=== PATIENT | female | born 1935 | race Caucasian/White ===

== ENCOUNTER 2020-01-03 10:47 | Inpatient (IN) ==
[2020-01-03] MEDS ORDERED: SOLU-MEDROL IV ONE (11:34)
[2020-01-03] MEDS ORDERED: NS 1,000 ML IV ONE (11:34)
[2020-01-03] MEDS ORDERED: DUONEB (A & A) INH ONE (11:34)
[2020-01-03] MEDS ORDERED: LEVAQUIN 750 MG/D5W 750 MG/150 ML IVPB IV ONE (11:34)
[2020-01-03] MEDS: TYLENOL PO ONE ×2 (11:34→13:02)
[2020-01-03] MEDS ORDERED: ROCEPHIN 1 GM in NS 50 ML IV ONE (11:34)
[2020-01-03 11:45] LABS: BASO# 0.03 X1000 (0.0-0.2); BASO% 0.2 % (0.0-0.8); EOS# 0.04 X1000 (0.0-0.7); EOS% 0.2 % (0.0-10.0); HEMATOCRIT 42.1 % (37.0-47.0); HEMOGLOBIN 13.4 g/dL (12.0-16.0); IMM GRAN# 0.06 X1000 (0.0-0.04); IMM GRAN% 0.3 % (0.0-0.5); LYMPH# 2.59 X1000 (1.2-3.4); LYMPH% 14.8 % (20.5-51.1); MCH 31.6 PG (27-31); MCHC 31.8 g/dL (33-37); MCV 99.3 FL (81-99); MONO# 1.96 X1000 (0.11-0.59); MONO% 11.2 % (1.7-9.3); MPV 11.6 FL (7.4-10.4); NEUT# 12.85 X1000 (1.4-6.5); NEUT% 73.3 % (42.2-75.2); PLT 134 X1000 (130-400); RBC 4.24 XMIL (4.2-5.4); RDW 14.1 % (11.5-14.5); WBC 17.53 X1000 (4.8-10.8)
[2020-01-03 11:51] LABS: BANDS 3 % (0-1); LYMPHS 13 % (21-51); MONO 5 % (1-9); SEGS 79 % (42-75)
--- NOTE | 2020-01-03 12:22 | Diag Imaging Result Doc PS360 ---
EXAM: CHEST-PORTABLE HISTORY: cough TECHNIQUE: Single view COMPARISON: 01/02/2020 FINDINGS: The lungs are well expanded except the right hemidiaphragm is elevated. The heart is not enlarged. The vessels are not distended. There are left basilar infiltrates. No effusion identified. IMPRESSION: Left lower lobe infiltrates Electronically signed by Charles Thompson 01/03/2020 12:19 PM
[2020-01-03 12:30] LABS: ALBUMIN 3.5 g/dL (3.5-5.0); CALCIUM 9.1 mg/dL (8.8-10.2); CREATININE 0.9 mg/dL (0.5-0.9); TOTAL BILIRUBIN 0.6 mg/dL (0.20-1.00); TOTAL PROTEIN 6.7 g/dL (6.3-8.3)
[2020-01-03] MEDS ORDERED: TYLENOL ONE (13:02)
--- NOTE | 2020-01-03 13:05 | PROVIDER DOCUMENTATION ---
This chart was entered by Debbie Cummings Scribe, acting as scribe for Awilda Benjamin MD. HPI-General Adult - General Chief Complaint: Fever Stated Complaint: FEVER, COUGH Time Seen by Provider: 01/03/20 10:53 Source: patient, other (sitter from [facility]) Unable to obtain history due to:: altered (hx of dementia but ams is not baseline and is more severe) Allergies/Adverse Reactions: Patient Allergies Allergy/AdvReac Type Severity Reaction Status Date / Time No Known Allergies Allergy Verified 12/24/19 21:28 Home Medications: Home Medication List Medication Instructions Recorded Confirmed Last Taken Type Amlodipine Besylate 5 mg PO DAILY 12/24/19 12/24/19 Unknown History Apixaban [Eliquis] 5 mg PO BID 12/24/19 12/24/19 Unknown History Aspirin 81 mg PO DAILY 12/24/19 12/24/19 Unknown History Atenolol [Tenormin] 25 mg PO DAILY 12/24/19 12/24/19 Unknown History Bisacodyl [Dulcolax] 10 mg PO DAILY PRN PRN 12/24/19 12/24/19 Unknown History Cholecalciferol (Vitamin D3) 2,000 unit PO DAILY 12/24/19 12/24/19 Unknown History [Vitamin D3] Dextran 70/Hypromellose 1 drp RIGHT EYE TID 12/24/19 12/24/19 Unknown History [Artificial Tears] Divalproex Sodium 250 mg PO DAILY 12/24/19 12/24/19 Unknown History Divalproex [Depakote Sprinkle] 500 mg PO HS 12/24/19 12/24/19 Unknown History Furosemide 20 mg PO DAILY 12/24/19 12/24/19 Unknown History Hydrocodone/Acetaminophen [[place] 7.5 mg PO TID 12/24/19 12/24/19 Unknown History 7.5-325 Tablet] Lactulose [Enulose] 30 ml PO DAILY 12/24/19 12/24/19 Unknown History Levothyroxine Sodium 88 mcg PO DAILY 12/24/19 12/24/19 Unknown History Melatonin/Pyridoxine [Melatonin 5 1 ea PO HS PRN PRN 12/24/19 12/24/19 Unknown History mg Tablet] Mirtazapine [Remeron] 15 mg PO HS 12/24/19 12/24/19 Unknown History Potassium Chloride 10 meq PO DAILY 12/24/19 12/24/19 Unknown History Quetiapine Fumarate 25 mg PO ORDERED 12/24/19 12/24/19 Unknown History Quetiapine Fumarate 50 mg PO BID 12/24/19 12/24/19 Unknown History Rifaximin [Xifaxan] 550 mg PO BID 12/24/19 12/24/19 Unknown History Rivastigmine 1 patch TD DAILY 12/24/19 12/24/19 Unknown History Ropinirole HCl [Requip] 0.25 mg PO HS 12/24/19 12/24/19 Unknown History Sennosides [Senna Lax] 8.6 mg PO BID 12/24/19 12/24/19 Unknown History Trazodone [Desyrel] 50 mg PO HS 12/24/19 12/24/19 Unknown History - History of Present Illness -Gen Adult Nature of Presenting Problems: 84 yowf presents to the ed from [facility] and was brought in by their van in a wheelchair. dalia from [facility] reports that pt had chest xray and labs done and both came back abnormal and a decline in mental status with cough and fever so pt was sent to ed for further work up. pt is confused and does not speak words when speaking and is frail in appearance Location of Pain/Injury: reports: none Pain Radiation: reports: no radiation Quality of Pain: reports: none Severity: reports: moderate (cough fever ams) Onset/Duration: reports: 2 days ago Timing: reports: intermittent, getting worse Context/Activities at Onset: reports: light activity Modifying Factors: improves with: nothing Associated Symptoms: reports: cough, fever/chills, loss of appetite, malaise, other (ams). denies: chest pain, diarrhea, headaches, nausea, shortness of breath, vomiting Similar Symptoms Previously?: Yes Recently seen or treated by another doctor?: No Review of Systems - Adult - REVIEW OF SYSTEMS - ADULT Constitutional: reports: see HPI, chills, fever Eyes: reports: no symptoms reported Ears, Nose, Mouth & Throat: reports: no symptoms reported Cardiovascular: denies: chest pain, palpitations Respiratory: reports: see HPI, cough. denies: shortness of breath, wheezing Gastrointestinal: denies: diarrhea, nausea, vomiting Genitourinary: reports: no symptoms reported Musculoskeletal: reports: no symptoms reported Integumentary: reports: no symptoms reported Neurological: reports: see HPI, other (altered speech but not slurred.). denies: dizziness/vertigo, headache/migraines, seizure Psychiatric: reports: no symptoms reported Endocrine: reports: no symptoms reported Hematologic/Lymphatic: reports: no symptoms reported Allergic/Immunologic: reports: no symptoms reported All Other Systems: Reviewed and Negative Past History - Adult - PAST MEDICAL HISTORY-ADULT Review of Records: reports: Old Records Reviewed, Nursing Assessment Review, Medications Reviewed, Social history reviewed & non-contributory. Major Childhood Illnesses: reports: denies history Cardiovascular: reports: HTN Respiratory: reports: denies history Gastrointestinal: reports: GERD Obstetrical/Gynecological: reports: denies history Genitourinary: reports: denies history Musculoskeletal: reports: denies history Neurological: reports: dementia Psychiatric: reports: denies history Endocrine/Immune: reports: thyroid disorder Other Conditions: reports: denies history - PRIOR SURGERIES/PROCEDURES Surgical/Procedure History: reports: reviewed, not pertinent - IMMUNIZATION STATUS Childhood Immunizations: See Nurse Assessment Flu Vaccine: See Nurse Assessment - FAMILY HISTORY Family History: reviewed, not pertinent - SOCIAL HISTORY Smoking: non-smoker Substance Use: none/never Living Situation: care facility ([facility]) Physical Exam-General - PHYSICAL EXAM-ADULT Exam Limited by: pt is confused Initial Vital Signs Reviewed: Yes - CONSTITUTIONAL General Appearance: alert, mild distress - EYES Eyes: PERRL/EOMI - HEAD, EARS, NOSE, MOUTH & THROAT HENMT: moist mucous membranes - NECK Neck: full range of motion, normal inspection - RESPIRATORY Respiratory: respiratory distress (mild), rhonchi, other (84% on RA placed on O2) - CARDIOVASCULAR Cardiovascular: normal peripheral pulses, regular rate, rhythm - CHEST (BREASTS) Chest/Breast: deferred - GASTROINTESTINAL (ABDOMEN) Abdominal Exam: normal bowel sounds, non tender, soft - GENITOURINARY Female Genitalia/Pelvic Exam: deferred Rectal Exam: deferred Hemoccult Exam: deferred - LYMPHATIC Lymphatic: no adenopathy - MUSCULOSKELETAL Back Exam: normal inspection Extremity: normal capillary refill, pelvis stable - SKIN Integumentary: normal color, normal turgor, warm/dry - NEUROLOGIC Neurologic: negative: facial droop, focal weakness, motor weakness - PSYCHIATRIC Psych/Mental Status: disoriented x 3 Progress - PLAN OF CARE/RESULTS Progress/Plan/Lab Results: Vital Signs - 8 hr 01/03/20 10:48 Pulse Rate 78 Respiratory Rate 18 Blood Pressure 106/66 O2 Sat by Pulse Oximetry 84 L Result Diagrams: 01/03/20 11:00 01/03/20 12:08 - REASSESSMENT Reassessment #1 Time Reassessed: 12:18 Status: unchanged (pt is resting in bed and still altered) - XRAY 1 XRAY: Bilateral XRAY Study: Chest Impression: See EMR Report (IMPRESSION: Left lower lobe infiltrates Electronically signed by Charles Donna 01/03/2020 12:19 PM 01/03/20 1219) - CONSULTS/PCP/HOSPITALIST Notification #1 *Consult/PCP/Hospitalist*: hospitalist dr nolasco Time Discussed: 13:01 Consult Disposition: Admit Departure - Departure Date of Disposition Decision: 01/03/20 Time of Disposition Decision: 13:04 DIAGNOSIS: Pneumonia Qualifiers: Pneumonia type: due to unspecified organism Laterality: bilateral Lung location: unspecified part of lung Qualified Code(s): J18.9 - Pneumonia, unspecified organism Disposition: ADMITTED INPATIENT 09 Certified Medical Emergency: Emergent Condition: Good Referrals and Follow-Ups: None,PCP [Primary Care Provider] - - Critical Care Note This patient required my direct & personal management of CC.: No Attestation - Physician/ PIERCE Attestation Patient care was provided by Advanced Practice Provider:: No The physician spent face to face time with patient:: Yes Advanced Practice Provider documentation review:: Supervising physician onsite and consulted in the evaluation and care of this patient. The physician did have a face to face encounter with the patient. This chart was documented by the indicated scribe, (Debbie Cummings Scribe) and accurately reflects the services I performed and decisions made by me, Awilda Benjamin MD, as attested by the provider's signature.
[2020-01-03 13:19] LABS: URINE SOURCE CATH
[2020-01-03 13:29] LABS: BILIRUBIN URINE NEGATIVE (NEGATIVE); BLOOD URINE NEGATIVE (NEGATIVE); COLOR YELLOW; GLUCOSE URINE NEGATIVE (NEGATIVE); KETONE URINE TRACE mg/dL (NEGATIVE); LEUKOCYTES URINE NEGATIVE (NEGATIVE); NITRITE URINE NEGATIVE (NEGATIVE); PROTEIN URINE 30 mg/dL (NEGATIVE); SP GRAVITY URINE 1.029; TURBIDITY URINE CLEAR (CLEAR); UROBILINOGEN URINE 2 mg/dL (NORMAL)
--- NOTE | 2020-01-03 14:05 | HISTORY AND PHYSICAL ---
SUBJECTIVE: This is a 89-year-old female with a past medical history according to her medications of low blood pressure. Patient is on blood thinners furosemide and she was basically sent from [facility] in the [facility] area because during the last couple of days she started having fever and cough. Apparently, there has not been any sick contacts around. The patient is not able to provide any more information. She just mumbles some unintelligible words. Patient does not look to be in any respiratory distress though. All the information that we got is from ER physician Dr. Benjamin. Here, upon ER evaluation, she was found to have an elevated white cell count, an x-ray that reveals left lower lobe pneumonia. As we mentioned before, patient is confused and does not speak words and no more information provided. Past medical history, past surgical history, family history, review of systems information is not possible to obtain because of the mental status of the patient. PHYSICAL EXAMINATION: VITAL SIGNS: Temperature 98.9 degrees, heart rate 77 respiratory rate 20, blood pressure 113/59. O2 saturation 94% on 2 L nasal cannula. At admission she was 84% on room air. GENERAL: This is a chronically ill-looking and frail, 84-year-old female lying in bed, in no acute distress. HEENT: Head is normocephalic, atraumatic. Mucous membranes dry. Pupils equal, round, and reactive to light and accommodation. Anicteric sclerae. Pale conjunctivae. NECK: No JVD noted. No carotid bruits. No lymphadenopathy. No thyromegaly. CARDIOVASCULAR: S1, S2 heard. No murmurs, gallops, or rubs. Regular rate and rhythm. RESPIRATORY: Minimal coarse breath sounds noted mostly on the left base. The patient is not using any accessory muscles or having work of breathing. ABDOMEN: Soft, nontender to palpation. Bowel sounds present. No organomegaly. EXTREMITIES: No clubbing, cyanosis, or edema. There are signs chronic venous insufficiency. Peripheral pulses present in both legs. NEUROLOGICAL: The patient is confused. Does not follow any commands. Her speech is incoherent. She mumbles some unintelligible words but she is able to move 4 extremities spontaneously. LABORATORY DATA: White cell count 17.53, hemoglobin 13.4, hematocrit 42.1, platelets 134,000. BMP is unremarkable. ProBNP is a little bit elevated. ASSESSMENT: Acute respiratory failure secondary to left lower lobe pneumonia. PLAN: We are going to treat this patient as healthcare-associated pneumonia. In this case, we are going to start this patient on vancomycin and Zosyn. We will provide also breathing treatment. Actually, because this patient meets criteria, we will test this patient for COVID-19. We are going to change breathing treatments for Ventolin MDI. We will continue to check CBC and BMP daily. We will look for home medications to be restarted. I do not have the list of medical conditions for this patient, so for today, we will monitor this patient closely and try to get updated list of medications. cc: Jarrod Vaughn MD
[2020-01-03 14:15] LABS: INFLUENZA A NEGATIVE (NEGATIVE); INFLUENZA B NEGATIVE (NEGATIVE)
[2020-01-03] MEDS ORDERED: PRILOSEC PO SCH (14:16)
[2020-01-03] MEDS ORDERED: DULCOLAX PO PRN ×2 (14:16→23:44)
[2020-01-03] MEDS ORDERED: NS 1,000 ML IV SCH (14:16)
[2020-01-03] MEDS ORDERED: TYLENOL PO PRN ×2 (14:16→23:40)
[2020-01-03] MEDS ORDERED: VANCOMYCIN IV PER PHARMACY MISC SCH ×2 (14:16→23:45)
[2020-01-03] MEDS ORDERED: ZOFRAN IV PRN ×2 (14:16→23:47)
[2020-01-03 15:00] LABS: INR 1.55; PROTIME 19.5 Seconds (11.0-16.0)
[2020-01-03] MEDS ORDERED: VANCOMYCIN 1,700 MG in NS 250 ML IV ONE (15:00)
[2020-01-03] MEDS ORDERED: ZOSYN 3.375 GM in NS 50 ML IV SCH (15:00)
[2020-01-03] MEDS: DUONEB (A & A) INH SCH ×2 (16:44→20:03)
[2020-01-03 18:49] LABS: UR EPITHELIAL CELLS <10 /HPF (<10); URINE BACTERIA NEGATIVE /HPF; URINE RBC <10 /HPF (<10); URINE WBC <10 /HPF (<10)
[2020-01-03] MEDS ORDERED: REMERON PO SCH (21:00)
[2020-01-03] MEDS ORDERED: SENOKOT PO SCH (21:00)
[2020-01-03] MEDS ORDERED: ELIQUIS PO SCH (21:00)
[2020-01-03] MEDS ORDERED: SEROQUEL PO SCH (21:00)
[2020-01-03] MEDS ORDERED: REQUIP PO SCH (21:00)
[2020-01-03] MEDS ORDERED: NEO-SYNEPHRINE 50 MG in NS 250 ML IV SCH ×2 (22:00→23:00)
[2020-01-04] MEDS: NS 1,000 ML IV SCH ×2 (00:13→08:09)
[2020-01-04] MEDS: ZOSYN 3.375 GM in NS 50 ML IV SCH ×4 (00:16→17:55)
[2020-01-04] MEDS ORDERED: DUONEB (A & A) INH SCH (03:30)
[2020-01-04] MEDS: SYNTHROID PO SCH (06:10)
[2020-01-04] MEDS: PRILOSEC PO SCH (06:10)
[2020-01-04] MEDS ORDERED: SYNTHROID PO SCH (07:00)
[2020-01-04] MEDS ORDERED: COMBIVENT RESPIMAT INHALER INH PRN (07:03)
[2020-01-04 07:06] LABS: HEMOGLOBIN 12.6 g/dL (12.0-16.0); IMM GRAN# 0.03 X1000 (0.0-0.04); IMM GRAN% 0.2 % (0.0-0.5); MONO% 9.4 % (1.7-9.3); RDW 14.1 % (11.5-14.5)
[2020-01-04 07:12] LABS: BASO# 0.04 X1000 (0.0-0.2); BASO% 0.3 % (0.0-0.8); HEMATOCRIT 40.7 % (37.0-47.0); LYMPH# 1.34 X1000 (1.2-3.4); LYMPH% 8.7 % (20.5-51.1); MCH 30.8 PG (27-31); MCV 99.5 FL (81-99); MONO# 1.46 X1000 (0.11-0.59); MPV 11.4 FL (7.4-10.4); NEUT# 12.62 X1000 (1.4-6.5); NEUT% 81.4 % (42.2-75.2); PLT 155 X1000 (130-400); RBC 4.09 XMIL (4.2-5.4); WBC 15.49 X1000 (4.8-10.8)
[2020-01-04 08:00] LABS: AGAP 13; BUN 28 mg/dL (8-22); CALCIUM 8.8 mg/dL (8.8-10.2); CHLORIDE 104 mmol/L (98-107); COSMO 298; CREATININE 0.7 mg/dL (0.5-0.9); ESTIMATED GFR > 60; GLUCOSE 131 mg/dL (70-104); PHOSPHORUS 2.5 mg/dL (2.7-4.5); POTASSIUM 4.1 mmol/L (3.5-5.1); SODIUM 146 mmol/L (136-145); TCO2 29 mmol/L (25-35)
[2020-01-04] MEDS: TENORMIN PO SCH (08:10)
[2020-01-04] MEDS: VITAMIN D PO SCH (08:10)
[2020-01-04] MEDS: NORVASC PO SCH (08:10)
[2020-01-04] MEDS: SENOKOT PO SCH ×2 (08:10→20:35)
[2020-01-04] MEDS: ELIQUIS PO SCH ×2 (08:11→20:09)
[2020-01-04] MEDS: SEROQUEL PO SCH ×2 (08:11→22:19)
[2020-01-04] MEDS: EXELON 13.3MG/24HRS TD SCH (08:15)
--- NOTE | 2020-01-04 08:54 | Diag Imaging Result Doc PS360 ---
CHEST-1 VIEW - 01/04/2020 INDICATION: pneumonia COMPARISON: 01/03/2020 FINDINGS: There is stable patchy infiltrate or atelectasis in both lung bases. There is significant right hemidiaphragm elevation. Heart size remains borderline. IMPRESSION: No change from prior. Electronically signed by Tang Edmondson 01/04/2020 8:52 AM
[2020-01-04] MEDS ORDERED: EXELON 13.3MG/24HRS TD SCH ×2 (09:00)
[2020-01-04] MEDS ORDERED: VITAMIN D PO SCH (09:00)
[2020-01-04] MEDS ORDERED: LASIX PO SCH (09:00)
[2020-01-04] MEDS ORDERED: TENORMIN PO SCH (09:00)
[2020-01-04] MEDS ORDERED: NORVASC PO SCH (09:00)
[2020-01-04 10:41] LABS: ALLEN TEST YES; BE 5.9 mmoll (-3.0-3.0); BLOOD TYPE ARTERIAL; HCO3-(ACT) 29.5 mmoll (20.0-26.0); METHB 1.7 % (0.0-1.5); O2(CT) 16.3 mL/dL (15.0-23.0); O2HB 95.7 % (95.0-99.0); PCO2(98.6) 44 mmHg (35-45); PO2(98.6) 97 mmHg (60-100); SAMPLE BLOOD; SAO2 99.1 % (95.0-100.0); pH(98.6) 7.45 (7.35-7.45)
[2020-01-04 10:44] LABS: MODALITY CANNULA
[2020-01-04] MEDS: CYMBALTA PO SCH (12:38)
[2020-01-04] MEDS: NEURONTIN PO SCH ×2 (12:43→17:11)
[2020-01-04] MEDS: TEARISOL OPH SOLUTION OPH SCH ×2 (12:55→17:11)
[2020-01-04] MEDS ORDERED: ATIVAN IV ONE (17:02)
[2020-01-04] MEDS: XIFAXAN PO SCH ×2 (20:09→22:19)
[2020-01-04] MEDS: DEPAKOTE SPRINKLE PO SCH ×2 (20:09→22:18)
[2020-01-04] MEDS: REQUIP PO SCH ×2 (20:09→22:20)
--- NOTE | 2020-01-04 20:46 | PROGRESS NOTE ---
DATE: 01/04/2020 SUBJECTIVE: The patient is resting comfortably in bed. She is no longer requiring pressor support. She is pleasantly confused. OBJECTIVE: Vital Signs: Temperature 98 degrees, blood pressure 112/64, heart rate 76, respirations 25, O2 saturation 99% on 3 L nasal cannula. Intake 1 L, output 530. General: This is a chronically ill-appearing elderly female lying in bed in no acute distress. Heart: S1, S2 normal. Regular rate and rhythm. Lungs: Equal air entry bilaterally. No wheezing. No rales. Abdomen: Positive bowel sounds. Soft, nontender, nondistended. Extremities: No edema. No cyanosis. Neurologic: The patient is alert and oriented to self only. She is able to move all 4 extremities. LABS: White blood cell count 15, hemoglobin 12, hematocrit 40, platelets 155,000. Sodium 140, potassium 4.1, BUN 28, creatinine 0.7 glucose 131, phosphorus 2.5. IMAGING: Chest x-ray shows a patchy infiltrates in both lung bases. ASSESSMENT AND PLAN: 1. Sepsis secondary to pneumonia. Continue with broad-spectrum antibiotics and gentle IV fluid hydration. 2. Bilateral lobe pneumonia. Continue with broad-spectrum antibiotics, supplemental oxygen and bronchodilator therapy. The patient is being ruled out for COVID 19. 3. Hypothyroidism. Continue on Synthroid. 4. Alzheimer's dementia with behavioral disturbance. Continue on Risperdal and Depakote. 5. Restless legs syndrome. Continue on Requip. 6. Chronic constipation. Continue with laxative therapy. 7. History of atrial fibrillation. Continue on the current medication. 8. Liver cirrhosis. Aware. The patient is on rifaximin. Disposition. I called and updated the patient's daughter on the patient's medical condition. cc: Tabitha Mendez MD MTDD
[2020-01-04] MEDS ORDERED: REMERON PO SCH (21:00)
[2020-01-05] MEDS: NS 1,000 ML IV SCH ×3 (01:37→11:00)
[2020-01-05] MEDS: ZOSYN 3.375 GM in NS 50 ML IV SCH ×4 (01:39→21:22)
[2020-01-05 03:26] LABS: BASO# 0.03 X1000 (0.0-0.2); BASO% 0.3 % (0.0-0.8); HEMATOCRIT 40.5 % (37.0-47.0); HEMOGLOBIN 12.8 g/dL (12.0-16.0); IMM GRAN# 0.05 X1000 (0.0-0.04); IMM GRAN% 0.5 % (0.0-0.5); LYMPH# 2.44 X1000 (1.2-3.4); LYMPH% 24.6 % (20.5-51.1); MCH 31.1 PG (27-31); MCHC 31.6 g/dL (33-37); MCV 98.5 FL (81-99); MONO# 0.88 X1000 (0.11-0.59); MONO% 8.9 % (1.7-9.3); MPV 10.3 FL (7.4-10.4); NEUT# 6.43 X1000 (1.4-6.5); NEUT% 64.7 % (42.2-75.2); PLT 157 X1000 (130-400); RBC 4.11 XMIL (4.2-5.4); WBC 9.93 X1000 (4.8-10.8)
[2020-01-05] MEDS ORDERED: VANCOMYCIN 1,350 MG in NS 250 ML IV SCH ×4 (04:00)
[2020-01-05 04:18] LABS: AGAP 9; ALBUMIN 2.5 g/dL (3.5-5.0); BUN 23 mg/dL (8-22); CHLORIDE 108 mmol/L (98-107); COSMO 290; CREATININE 0.7 mg/dL (0.5-0.9); ESTIMATED GFR > 60; GLUCOSE 86 mg/dL (70-104); PHOSPHORUS 2.9 mg/dL (2.7-4.5); POTASSIUM 3.8 mmol/L (3.5-5.1); SODIUM 144 mmol/L (136-145); TCO2 27 mmol/L (25-35)
[2020-01-05] MEDS: SYNTHROID PO SCH (06:04)
[2020-01-05] MEDS: PRILOSEC PO SCH (06:04)
--- NOTE | 2020-01-05 07:47 | EKG Report ---
Test Performed on : 01/05/2020 06:59:41 AM Test Reason : qt prolongation on antipsychotic Blood Pressure : / mmHG Vent. Rate : 068 BPM Atrial Rate : 068 BPM P-R Int : 158 ms QRS Dur : 120 ms QT Int : 418 ms P-R-T Axes : 056 261 -67 degrees QTc Int : 444 ms Sinus rhythm. with premature supraventricular complexes. 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 are now present Confirmed by Lj GARRETT, Noe Esquivel ([id number]) on 01/07/2020 9:10:03 AM
[2020-01-05] MEDS: RISPERDAL M-TAB PO SCH (10:00)
[2020-01-05] MEDS: EXELON 13.3MG/24HRS TD SCH (10:00)
[2020-01-05] MEDS: VITAMIN D PO SCH (10:00)
[2020-01-05] MEDS: NORVASC PO SCH (10:00)
[2020-01-05] MEDS: ELIQUIS PO SCH ×2 (10:00→21:23)
[2020-01-05] MEDS: TEARISOL OPH SOLUTION OPH SCH ×3 (10:01→21:23)
[2020-01-05] MEDS: SEROQUEL PO SCH ×2 (10:01→21:23)
[2020-01-05] MEDS: NEURONTIN PO SCH ×3 (10:01→23:31)
[2020-01-05] MEDS: XIFAXAN PO SCH ×2 (10:01→21:23)
[2020-01-05] MEDS: CYMBALTA PO SCH (10:01)
[2020-01-05] MEDS: TENORMIN PO SCH (10:01)
[2020-01-05] MEDS: SENOKOT PO SCH ×2 (10:01→21:23)
[2020-01-05] MEDS: DEPAKOTE SPRINKLE PO SCH ×2 (10:02→21:24)
--- NOTE | 2020-01-05 14:20 | PROGRESS NOTE ---
DATE: 01/05/2020 SUBJECTIVE: The patient is resting comfortably in bed. No acute events noted overnight. OBJECTIVE: Vital Signs: Temperature 98.3 degrees, blood pressure 116/70, heart rate 58, respirations 21, and O2 saturation 99% on 3 liters nasal cannula. General: This is a chronically ill-appearing elderly female lying in bed in no acute distress. Heart: S1 and S2 normal. Lungs: Equal air entry bilaterally. Abdomen: Positive bowel sounds. Soft, nontender, nondistended. Extremities: No edema, no cyanosis. Neurologic: The patient is alert, but oriented to self only. LABS: White blood cell count 9.9, hemoglobin 12, hematocrit 40, platelets 157,000. Sodium 144, potassium 3.8, chloride 108, CO2 of 27, BUN 23, creatinine 0.7, glucose 86. ASSESSMENT AND PLAN: 1. Sepsis secondary to pneumonia. Improved. 2. Bilateral lobe pneumonia. Continue with broad-spectrum antibiotics, supplemental oxygen and bronchodilator therapy. The patient is currently being ruled out for COVID 19. 3. Hypothyroidism. Continue on Synthroid. 4. Severe protein-calorie malnutrition. We will add Ensure with each meal. 5. Alzheimer dementia with behavioral disturbance. Continue on Risperdal and Depakote. 6. Restless legs syndrome. Continue on Requip. 7. History of atrial fibrillation. Continue on the current medication. 8. Liver cirrhosis. Aware. 9. Disposition. We will transfer the patient to the medical floor on isolation. cc: Tabitha Mendez MD MTDD
--- NOTE | 2020-01-05 16:39 | Diag Imaging Result Doc PS360 ---
EXAM: CT HEAD W/O CONTRAST INDICATION: fall/pt on Eliquis TECHNIQUE: This exam was performed using automated exposure control, adjustment of mA or kV according to patient size, and/or use of iterative reconstruction technique. COMPARISON: None. FINDINGS: There is moderate diffuse brain atrophy. There is a tiny focus of encephalomalacia involving the posterior right frontal lobe near the high convexity. There is no definite acute infarct given the limited sensitivity of CT versus MRI. There is no discrete intracranial mass, mass effect, or intracranial hemorrhage. The surrounding soft tissues and bony structures are essentially unremarkable. IMPRESSION: Chronic changes as described above. No definite acute intracranial pathology by CT. Electronically signed by En Sarmiento 01/05/2020 4:36 PM
--- NOTE | 2020-01-05 16:51 | Diag Imaging Result Doc PS360 ---
EXAM: XRAY HIP W/PELVIS BILAT 3-4VWS INDICATION: fall/pt on Eliquis TECHNIQUE: 4 views COMPARISON: 12/26/2019 FINDINGS: There has been a prior right hip arthroplasty. There is no radiographic evidence of hardware loosening. There are degenerative changes at the left hip with significant joint space narrowing, stable. There is no evidence of fracture, dislocation, or significant intrinsic osseous lesion, otherwise. Surrounding soft tissues are unremarkable. IMPRESSION: Degenerative changes but no evidence of acute osseous abnormality. Electronically signed by En Sarmiento 01/05/2020 4:49 PM
[2020-01-05] MEDS: REQUIP PO SCH (21:23)
[2020-01-05] MEDS: MELATONIN PO PRN (23:31)
[2020-01-06] MEDS: ZOSYN 3.375 GM in NS 50 ML IV SCH ×4 (04:14→20:13)
[2020-01-06] MEDS: PRILOSEC PO SCH (06:27)
[2020-01-06] MEDS: SYNTHROID PO SCH (06:27)
[2020-01-06 06:34] LABS: BASO# 0.04 X1000 (0.0-0.2); BASO% 0.6 % (0.0-0.8); EOS# 0.21 X1000 (0.0-0.7); EOS% 2.9 % (0.0-10.0); HEMATOCRIT 42.4 % (37.0-47.0); HEMOGLOBIN 13.7 g/dL (12.0-16.0); IMM GRAN# 0.06 X1000 (0.0-0.04); IMM GRAN% 0.8 % (0.0-0.5); LYMPH% 26.6 % (20.5-51.1); MCH 31.2 PG (27-31); MCHC 32.3 g/dL (33-37); MCV 96.6 FL (81-99); MONO# 0.84 X1000 (0.11-0.59); MONO% 11.8 % (1.7-9.3); MPV 9.8 FL (7.4-10.4); NEUT# 4.09 X1000 (1.4-6.5); NEUT% 57.3 % (42.2-75.2); PLT 185 X1000 (130-400); RBC 4.39 XMIL (4.2-5.4); RDW 13.4 % (11.5-14.5); WBC 7.14 X1000 (4.8-10.8)
[2020-01-06 06:59] LABS: AGAP 12; BUN 17 mg/dL (8-22); CALCIUM 7.7 mg/dL (8.8-10.2); CHLORIDE 103 mmol/L (98-107); COSMO 282; CREATININE 0.6 mg/dL (0.5-0.9); ESTIMATED GFR > 60; GLUCOSE 88 mg/dL (70-104); PHOSPHORUS 2.8 mg/dL (2.7-4.5); POTASSIUM 3.6 mmol/L (3.5-5.1); SODIUM 141 mmol/L (136-145); TCO2 26 mmol/L (25-35)
--- NOTE | 2020-01-06 07:23 | Diag Imaging Result Doc PS360 ---
CHEST-1 VIEW - 01/06/2020 INDICATION: pneumonia COMPARISON: 01/04/2020 FINDINGS: Stable right hemidiaphragm elevation. Stable mild cardiomegaly. There is improvement in the patchy atelectasis or infiltrate in both lung bases. IMPRESSION: Improvement in the patchy atelectasis or infiltrate in the lung bases. Electronically signed by Tang Edmondson 01/06/2020 7:20 AM
[2020-01-06] MEDS: VITAMIN D PO SCH (09:56)
[2020-01-06] MEDS: NORVASC PO SCH (09:56)
[2020-01-06] MEDS: CYMBALTA PO SCH (09:56)
[2020-01-06] MEDS: ELIQUIS PO SCH ×3 (09:56→20:18)
[2020-01-06] MEDS: DEPAKOTE SPRINKLE PO SCH ×2 (09:56→20:14)
[2020-01-06] MEDS: XIFAXAN PO SCH ×2 (09:57→20:15)
[2020-01-06] MEDS: TENORMIN PO SCH (09:57)
[2020-01-06] MEDS: RISPERDAL M-TAB PO SCH (09:57)
[2020-01-06] MEDS: NEURONTIN PO SCH ×3 (09:57→18:27)
[2020-01-06] MEDS: SEROQUEL PO SCH ×2 (09:57→20:18)
[2020-01-06] MEDS: SENOKOT PO SCH ×2 (09:57→20:17)
[2020-01-06] MEDS: EXELON 13.3MG/24HRS TD SCH (09:58)
[2020-01-06] MEDS ORDERED: ATIVAN IV ONE (11:46)
[2020-01-06] MEDS: TEARISOL OPH SOLUTION OPH SCH ×3 (11:48→18:29)
[2020-01-06] MEDS: VANCOMYCIN 1,500 MG in NS 250 ML IV SCH (18:15)
--- NOTE | 2020-01-06 19:06 | PROGRESS NOTE ---
DATE: 01/06/2020 SUBJECTIVE: The patient is resting comfortably. She was noted to be agitated earlier this morning. OBJECTIVE: Vital Signs: Temperature 98.4 degrees, blood pressure 128/60, heart rate 52, respirations 16, O2 saturations 100% on room air. General: This is a chronically ill-appearing elderly female lying in bed in no acute distress. Heart: S1, S2 normal. Regular rate and rhythm. Lungs: Equal air entry bilaterally. No wheezing. No rales. Abdomen: Positive bowel sounds. Soft, nontender, nondistended. Extremities: No edema, no cyanosis. Neurologic: The patient is only oriented to self. She is able to move all 4 extremities. LABS: White blood cell count 7.1, hemoglobin 13, hematocrit 42, platelets 185,000. Sodium 141, potassium 3.6, chloride 103, CO2 26, BUN 17, creatinine 0.6, glucose 88. IMAGING: Chest x-ray shows improvement in the infiltrate in the lung bases. ASSESSMENT AND PLAN: 1. Sepsis secondary to pneumonia. The sepsis appears to have resolved. 2. Bilateral lobe pneumonia. Slowly improving. There is improvement on the chest x-ray today, and the patient has a normal white blood cell count. Continue with antibiotic therapy and bronchodilator therapy. 3. Advanced Alzheimer's dementia with behavioral disturbance. The patient is currently on Risperdal and Depakote as well as an Exelon patch. The patient still continues to have periods of severe anxiety. The patient may benefit from further assessment at [facility]. 4. Hypothyroidism. Continue on Synthroid. 5. Severe protein calorie malnutrition. Continue with Ensure with each meal. 6. Restless legs syndrome. Continue on Requip. 7. History of atrial fibrillation. The patient is rate controlled. Continue on Eliquis. 8. Disposition. We will continue to monitor the patient over the weekend on IV antibiotics. If her x-ray shows continued improvement, we will consult [facility] on Friday for further inpatient psychiatric evaluation. I updated the patient's daughter, Krissy. All of her questions were answered. cc: Tabitha Mendez MD MTDD
[2020-01-06] MEDS: ATIVAN IV PRN (20:13)
[2020-01-06] MEDS: REQUIP PO SCH (20:15)
[2020-01-06] MEDS: MELATONIN PO PRN (20:16)
[2020-01-07] MEDS: ZOSYN 3.375 GM in NS 50 ML IV SCH ×5 (02:14→20:41)
[2020-01-07] MEDS: SYNTHROID PO SCH ×2 (05:52→09:27)
[2020-01-07] MEDS: PRILOSEC PO SCH ×2 (05:52→09:27)
[2020-01-07 06:41] LABS: HEMATOCRIT 42.8 % (37.0-47.0); MCH 31.7 PG (27-31); MCHC 32.7 g/dL (33-37); MCV 97.1 FL (81-99); MPV 10.1 FL (7.4-10.4); RBC 4.41 XMIL (4.2-5.4); RDW 13.5 % (11.5-14.5); WBC 7.14 X1000 (4.8-10.8)
[2020-01-07 07:13] LABS: AGAP 14; BUN 11 mg/dL (8-22); CALCIUM 8.1 mg/dL (8.8-10.2); CHLORIDE 105 mmol/L (98-107); COSMO 278; CREATININE 0.8 mg/dL (0.5-0.9); ESTIMATED GFR > 60; GLUCOSE 80 mg/dL (70-104); POTASSIUM 3.9 mmol/L (3.5-5.1); SODIUM 140 mmol/L (136-145); TCO2 21 mmol/L (25-35)
[2020-01-07] MEDS: ATIVAN IV PRN (09:21)
[2020-01-07] MEDS: NEURONTIN PO SCH ×3 (09:21→20:15)
[2020-01-07] MEDS: TEARISOL OPH SOLUTION OPH SCH ×3 (09:23→19:10)
[2020-01-07] MEDS: CYMBALTA PO SCH (09:24)
[2020-01-07] MEDS: XIFAXAN PO SCH ×2 (09:25→20:41)
[2020-01-07] MEDS: SENOKOT PO SCH ×2 (09:25→20:41)
[2020-01-07] MEDS: NORVASC PO SCH (09:25)
[2020-01-07] MEDS: SEROQUEL PO SCH ×2 (09:25→20:41)
[2020-01-07] MEDS: VITAMIN D PO SCH (09:26)
[2020-01-07] MEDS: ELIQUIS PO SCH ×2 (09:26→20:41)
[2020-01-07] MEDS: DEPAKOTE SPRINKLE PO SCH ×2 (09:28→20:41)
[2020-01-07] MEDS: TENORMIN PO SCH (09:28)
[2020-01-07] MEDS: RISPERDAL M-TAB PO SCH (09:29)
[2020-01-07] MEDS: EXELON 13.3MG/24HRS TD SCH (09:30)
[2020-01-07] MEDS ORDERED: ZOSYN ONE ×2 (09:36→13:54)
--- NOTE | 2020-01-07 13:37 | PROGRESS NOTE ---
DATE: 01/07/2020 SUBJECTIVE: The patient is resting comfortably in bed. No acute events noted overnight. OBJECTIVE: Vital Signs: Temperature 97.7 degrees, blood pressure 135/71, heart rate 71, respirations 21, O2 saturations 96% on room air. General: This is a chronically ill-appearing elderly female lying in bed in no acute distress. Heart: S1, S2 normal. Regular rate and rhythm. Lungs: Clear to auscultation bilaterally. Abdomen: Positive bowel sounds. Soft, nontender, nondistended. Extremities: No edema, no cyanosis. Neurologic: The patient is oriented to self. She is able to move all 4 extremities. LABS: White blood cell count 7.1, hemoglobin 14, hematocrit 42, platelets 147,000. Sodium 140, potassium 3.9, chloride 105, CO2 21, BUN 11, creatinine 0.8, glucose 80. ASSESSMENT AND PLAN: 1. Sepsis secondary to pneumonia. Resolved. 2. Bilateral lobe pneumonia. Slowly improving. Continue on the current antibiotic regimen. 3. Advanced dementia with behavioral disturbance. Continue on the current medications. The patient is receiving p.r.n. Ativan for anxiety attacks. The patient may benefit from further assessment at [facility] as an inpatient. 4. Hypothyroidism. Continue on Synthroid. 5. Restless legs syndrome. Continue on Requip. 6. History of atrial fibrillation. The patient is rate controlled. Continue on Eliquis. 7. Severe protein calorie malnutrition. Continue on Ensure with each meal. 8. Disposition. Continue with the current treatment regimen. We will consult [facility] on Friday. cc: Tabitha Mendez MD
[2020-01-07] MEDS: VANCOMYCIN 1,500 MG in NS 250 ML IV SCH (19:09)
[2020-01-07] MEDS: REQUIP PO SCH (20:41)
[2020-01-08] MEDS: ZOSYN 3.375 GM in NS 50 ML IV SCH ×5 (03:39→22:30)
[2020-01-08] MEDS: PRILOSEC PO SCH ×2 (04:27→07:05)
[2020-01-08] MEDS: SYNTHROID PO SCH ×2 (04:27→07:06)
[2020-01-08] MEDS: ATIVAN IV PRN ×2 (06:05→10:23)
[2020-01-08 07:16] LABS: AGAP 11; BUN 10 mg/dL (8-22); CALCIUM 8.5 mg/dL (8.8-10.2); CHLORIDE 98 mmol/L (98-107); COSMO 273; CREATININE 0.7 mg/dL (0.5-0.9); ESTIMATED GFR > 60; GLUCOSE 96 mg/dL (70-104); POTASSIUM 3.3 mmol/L (3.5-5.1); SODIUM 137 mmol/L (136-145); TCO2 28 mmol/L (25-35)
[2020-01-08] MEDS ORDERED: POTASSIUM CHLORIDE 20% LIQUID PO ONE (07:34)
[2020-01-08] MEDS: TENORMIN PO SCH (09:19)
[2020-01-08] MEDS: TEARISOL OPH SOLUTION OPH SCH ×3 (09:19→18:44)
[2020-01-08] MEDS: ELIQUIS PO SCH ×2 (09:19→22:28)
[2020-01-08] MEDS: RISPERDAL M-TAB PO SCH (09:19)
[2020-01-08] MEDS: NORVASC PO SCH (09:19)
[2020-01-08] MEDS: XIFAXAN PO SCH ×2 (09:20→22:31)
[2020-01-08] MEDS: SEROQUEL PO SCH ×2 (09:20→22:30)
[2020-01-08] MEDS: SENOKOT PO SCH ×2 (09:20→22:31)
[2020-01-08] MEDS: VITAMIN D PO SCH (09:20)
[2020-01-08] MEDS: DEPAKOTE SPRINKLE PO SCH ×2 (09:21→22:30)
[2020-01-08] MEDS: EXELON 13.3MG/24HRS TD SCH (09:22)
[2020-01-08] MEDS: CYMBALTA PO SCH (09:22)
[2020-01-08] MEDS: NEURONTIN PO SCH ×3 (09:28→18:45)
[2020-01-08] MEDS: VANCOMYCIN 1,500 MG in NS 250 ML IV SCH (19:03)
--- NOTE | 2020-01-08 19:55 | PROGRESS NOTE ---
DATE: 01/07/2020 SUBJECTIVE: The patient is resting comfortably. She still has periods of anxiety. OBJECTIVE: Vital Signs: Temperature 98.4, blood pressure 137/73, heart rate 88, respirations 16, O2 saturation 94% on room air. General: This is a [id number] elderly female lying in bed in no acute distress. Heart: S1, S2 normal. Regular rate and rhythm. Lungs: Equal air entry bilaterally. No wheezing. No rales. No rhonchi. Abdomen: Positive bowel sounds. Soft, nontender, nondistended. Extremities: No edema, no cyanosis. Neurologic: The patient is alert but oriented to self only. LABS: Potassium 3.3, BUN 10, creatinine 0.7, sodium 137, glucose 96. ASSESSMENT AND PLAN: 1. Sepsis secondary to pneumonia. Resolved. 2. Bilateral lobe pneumonia. This continues to improve every day. Continue with the current antibiotic regimen with supplemental oxygen. 3. Advanced dementia with behavioral disturbance. Continue on the current psychiatric medications. The patient is also receiving p.r.n. Ativan. 4. Hypothyroidism. Continue on Synthroid. 5. Restless legs syndrome. Continue on Requip. 6. History of atrial fibrillation. Continue on Eliquis. 7. Severe protein calorie malnutrition. Continue with Ensure with each meal. 8. Hypokalemia. Will replace the potassium. 9. Disposition. We will consult with [facility] for possible readmission on Friday. cc: Tabitha Mendez MD MTDD
[2020-01-08] MEDS: REQUIP PO SCH (22:28)
[2020-01-08] MEDS: MEGACE LIQUID PO SCH (22:30)
[2020-01-09] MEDS: ZOSYN 3.375 GM in NS 50 ML IV SCH ×4 (03:30→22:03)
[2020-01-09] MEDS: ATIVAN IV PRN ×2 (06:19→06:40)
[2020-01-09] MEDS: SYNTHROID PO SCH (06:37)
[2020-01-09] MEDS: PRILOSEC PO SCH (06:37)
[2020-01-09 07:26] LABS: AGAP 10; BUN 12 mg/dL (8-22); CALCIUM 8.5 mg/dL (8.8-10.2); CHLORIDE 100 mmol/L (98-107); COSMO 269; CREATININE 0.7 mg/dL (0.5-0.9); ESTIMATED GFR > 60; GLUCOSE 90 mg/dL (70-104); POTASSIUM 3.9 mmol/L (3.5-5.1); SODIUM 135 mmol/L (136-145); TCO2 25 mmol/L (25-35)
[2020-01-09] MEDS: MEGACE LIQUID PO SCH ×2 (10:42→22:01)
[2020-01-09] MEDS: TEARISOL OPH SOLUTION OPH SCH ×3 (10:43→17:43)
[2020-01-09] MEDS: TENORMIN PO SCH (10:43)
[2020-01-09] MEDS: NEURONTIN PO SCH ×3 (10:43→17:42)
[2020-01-09] MEDS: RISPERDAL M-TAB PO SCH (10:44)
[2020-01-09] MEDS: VITAMIN D PO SCH (10:44)
[2020-01-09] MEDS: DEPAKOTE SPRINKLE PO SCH ×2 (10:44→22:01)
[2020-01-09] MEDS: CYMBALTA PO SCH (10:44)
[2020-01-09] MEDS: ELIQUIS PO SCH ×2 (10:45→22:01)
[2020-01-09] MEDS: SENOKOT PO SCH ×2 (10:45→22:01)
[2020-01-09] MEDS: NORVASC PO SCH (10:45)
[2020-01-09] MEDS: SEROQUEL PO SCH ×2 (10:45→22:01)
[2020-01-09] MEDS: XIFAXAN PO SCH ×2 (10:45→22:01)
[2020-01-09] MEDS: EXELON 13.3MG/24HRS TD SCH (11:13)
--- NOTE | 2020-01-09 18:08 | PROGRESS NOTE ---
DATE: 01/09/2020 SUBJECTIVE: The patient is resting comfortably in bed. No acute events noted overnight. She did receive Ativan at 6:00 this morning. OBJECTIVE: Vital Signs: Temperature 98.4 degrees, blood pressure 105/51, heart rate 69, respirations 18, and O2 saturation is 94% on room air. General: This is a chronically ill- appearing elderly female lying in bed in no acute distress. Heart: S1, S2 normal. Regular rate and rhythm. Lungs: Equal air entry bilaterally. Abdomen: Positive bowel sounds. Soft, nontender, nondistended. Extremities: No edema. No cyanosis. Neurologic: The patient is oriented to self only. She is able to move all 4 extremities. LABORATORIES: Reviewed. ASSESSMENT AND PLAN: 1. Sepsis secondary to pneumonia. Resolved. 2. Bilateral lobe pneumonia. Improved. The patient has normal oxygen saturations on room air. 3. Hypothyroidism. Continue on Synthroid. 4. Advanced dementia with behavioral disturbance. Continue on the current psychiatric medications. We will consult with [facility] for inpatient treatment. 5. History of atrial fibrillation. Continue on Eliquis. 6. Restless leg syndrome. Continue on Requip. 7. Severe protein-calorie malnutrition. The patient is not eating well. Megace was started. Continue on Ensure. DISPOSITION: The patient is medically stable for discharge for inpatient psychiatric treatment. I updated the patient's daughter, Krissy about the patient's medical condition. All of her questions were answered. cc: Tabitha Mendez MD [facility]
[2020-01-09] MEDS: VANCOMYCIN 1 GM/NS 1 GM/250 ML IVPB IV SCH (18:57)
[2020-01-09] MEDS: REQUIP PO SCH (22:01)
[2020-01-10] MEDS: ZOSYN 3.375 GM in NS 50 ML IV SCH ×2 (04:06→10:55)
[2020-01-10] MEDS: VANCOMYCIN 1 GM/NS 1 GM/250 ML IVPB IV SCH (06:00)
[2020-01-10] MEDS: SYNTHROID PO SCH (06:01)
[2020-01-10] MEDS: PRILOSEC PO SCH (06:01)
[2020-01-10 06:08] LABS: BASO# 0.03 X1000 (0.0-0.2); BASO% 0.4 % (0.0-0.8); EOS% 5.7 % (0.0-10.0); HEMATOCRIT 37.8 % (37.0-47.0); HEMOGLOBIN 12.3 g/dL (12.0-16.0); IMM GRAN# 0.13 X1000 (0.0-0.04); IMM GRAN% 1.8 % (0.0-0.5); LYMPH# 1.94 X1000 (1.2-3.4); LYMPH% 27.6 % (20.5-51.1); MCH 31.1 PG (27-31); MCHC 32.5 g/dL (33-37); MCV 95.7 FL (81-99); MONO% 17.1 % (1.7-9.3); MPV 9.8 FL (7.4-10.4); NEUT# 3.33 X1000 (1.4-6.5); NEUT% 47.4 % (42.2-75.2); PLT 194 X1000 (130-400); RBC 3.95 XMIL (4.2-5.4); RDW 13.4 % (11.5-14.5); WBC 7.03 X1000 (4.8-10.8)
[2020-01-10] MEDS: ATIVAN IV PRN (06:44)
[2020-01-10 06:48] LABS: AGAP 9; BUN 16 mg/dL (8-22); CHLORIDE 103 mmol/L (98-107); COSMO 280; CREATININE 0.7 mg/dL (0.5-0.9); ESTIMATED GFR > 60; GLUCOSE 85 mg/dL (70-104); POTASSIUM 3.3 mmol/L (3.5-5.1); SODIUM 140 mmol/L (136-145); TCO2 28 mmol/L (25-35)
--- NOTE | 2020-01-10 07:20 | Diag Imaging Result Doc PS360 ---
EXAM: CHEST-1 VIEW HISTORY: pneumonia TECHNIQUE: Single view COMPARISON: 01/06/2020 FINDINGS: The right hemidiaphragm is elevated. No cardiomegaly. No pulmonary edema. No pleural effusions identified. The lower lung markings are less prominent. There is a granuloma in the lower left lung versus a left breast calcification. IMPRESSION: Interval improvement Electronically signed by Charles Thompson 01/10/2020 7:17 AM
[2020-01-10] MEDS ORDERED: POTASSIUM CHLORIDE 20% LIQUID PO ONE (08:43)
[2020-01-10] MEDS: NEURONTIN PO SCH ×2 (10:53→12:30)
[2020-01-10] MEDS: DEPAKOTE SPRINKLE PO SCH (10:53)
[2020-01-10] MEDS: VITAMIN D PO SCH (10:53)
[2020-01-10] MEDS: MEGACE LIQUID PO SCH (10:53)
[2020-01-10] MEDS: TENORMIN PO SCH (10:53)
[2020-01-10] MEDS: ELIQUIS PO SCH (10:54)
[2020-01-10] MEDS: SEROQUEL PO SCH (10:54)
[2020-01-10] MEDS: RISPERDAL M-TAB PO SCH (10:54)
[2020-01-10] MEDS: NORVASC PO SCH (10:54)
[2020-01-10] MEDS: SENOKOT PO SCH (10:54)
[2020-01-10] MEDS: CYMBALTA PO SCH (10:55)
[2020-01-10] MEDS: XIFAXAN PO SCH (10:55)
[2020-01-10] MEDS: EXELON 13.3MG/24HRS TD SCH (10:56)
[2020-01-10] MEDS: TEARISOL OPH SOLUTION OPH SCH ×2 (10:56→12:30)
--- NOTE | 2020-01-10 13:06 | DISCHARGE SUMMARY ---
ADMISSION DATE: 01/03/2020 DISCHARGE DATE: 01/10/2020 FINAL DISCHARGE DIAGNOSES: 1. Sepsis secondary to pneumonia. 2. Acute hypoxemic respiratory failure. 3. Bilateral lobe pneumonia. 4. Hypothyroidism. 5. Advanced dementia with behavioral disturbance. 6. Paroxysmal atrial fibrillation. 7. Restless leg syndrome. 8. Severe protein calorie malnutrition. 9. Hypokalemia. IMAGIN. Portable chest x-ray performed on 01/03/2020, which revealed left lower lobe infiltrate. 2. Head CT performed on 01/05/2020 which revealed chronic changes. 3. Chest x-ray performed on 01/06/2020, which revealed improvement in the patchy infiltrates in the lung bases. 4. Chest x-ray performed on 01/10/2020, which revealed interval improvement. HOSPITAL COURSE: Ms. Goodwin is an 84-year-old female with advanced dementia, paroxysmal atrial fibrillation and restless leg syndrome, who was sent to the ER from [facility] [place] with concerns about sepsis. Upon arrival to the ER, the patient was noted to be in acute respiratory failure. An x-ray was done that revealed pneumonia. Blood cultures were obtained. The patient was admitted to the Hospitalist Service. The patient was started on IV fluids, pressor support and broad-spectrum antibiotics. There was concern about COVID-19, so the patient was placed on isolation and the test was performed. Slowly over the course of the hospitalization, the patient's respiratory status improved, and the patient was able to be weaned off of the Que- Synephrine. The blood cultures remained negative throughout the hospital stay. The COVID-19 test came back negative. The patient improved and was transferred to the medical floor. The patient did have difficulty with eating as in meaning the patient did not feel like eating. She was started on Megace to stimulate her appetite. The patient did have episodes of anxiety and was given Ativan with good results. The patient was reassessed by [facility] [place] on 01/10/2020, and they stated that the patient had completed treatment at their facility and did not need to come back. A repeat chest x-ray was done on 01/10/2020, which revealed improvement in the pneumonia. The patient is now on room air with normal oxygen saturation. At this time, the patient is medically stable for discharge to [facility]. DISCHARGE MEDICATIONS: 1. Megace 200 mg oral twice a day. 2. Tylenol 650 mg oral every 6 hours p.r.n. for pain. 3. Augmentin 875/125 one tab oral twice a day x3 days. 4. Depakote 250 mg oral every morning. 5. Seroquel 50 mg oral twice a day. 6. Ativan 0.5 mg oral twice a day p.r.n. for anxiety. 7. Norvasc 5 mg p.o. daily. 8. Aspirin 81 mg oral daily. 9. Atenolol 25 mg oral daily. 10. Bisacodyl 10 mg oral daily p.r.n. for constipation. 11. Vitamin D 3 2000 units oral daily. 12. Synthroid 88 mcg oral daily. 13. Rifaximin 550 mg oral twice a day. 14. Rivastigmine 1 patch transdermal daily. 15. Sinusoid 8.6 mg oral twice a day. 16. Eliquis 5 mg oral twice a day. 17. Lactulose 30 mg oral daily. 18. Gabapentin 300 mg oral 3 times a day. 19. Cymbalta 60 mg oral daily. 20. Depakote 500 mg oral at bedtime. 21. Requip 0.25 mg oral at bedtime. 22. Risperdal 0.5 mg oral every morning. 23. Mathis 7.5/325 one tab oral twice a day p.r.n. for pain. DISCHARGE DIET: Low-sodium, low-cholesterol diet. ACTIVITY: As tolerated. FOLLOWUP INSTRUCTIONS: The patient will need to follow up with her primary care physician in 2 weeks. cc: Tabitha Mendez MD
[2020-01-10 16:08] VITALS: BP 110/55
== END 2020-01-10 17:16 | DRG 871 ==
LOC: P.ED 10:47 → P.MEDSURG 14:05 → SUATTDRO 14:05 → P.MEDSURG 14:36 → ICU 23:24 → 4N 01-05 13:59
PROVIDERS: ATTEND Internal Medicine